=== PATIENT | male | born 1960 | race Caucasian/White ===

== ENCOUNTER 2023-10-17 15:46 | Outpatient (RCR) | payer OTHER, SELFPAY | END 2023-11-03 06:00 | disposition home or self-care (01) | LOC: PT 15:46 | PROVIDERS: PCP Family Medicine | DX: S72.361D Displaced segmental fracture of shaft of right femur, subsequent encounter for closed fracture with routine healing (principal); Z48.89 Encounter for other specified surgical aftercare | CPT/HCPCS: 97110; 97112; 97163 ==

== ENCOUNTER 2023-11-04 07:29 | Outpatient (RCR) | payer OTHER, SELFPAY | END 2023-12-20 11:27 | disposition home or self-care (01) | LOC: PT 07:29 | PROVIDERS: PCP Family Medicine; Visit Provider Licensed Practical Nurse | DX: S72.361D Displaced segmental fracture of shaft of right femur, subsequent encounter for closed fracture with routine healing (principal); Z48.89 Encounter for other specified surgical aftercare | CPT/HCPCS: 97110; 97112; 97530 ==